=== PATIENT | female | born 1985 | race Two or more races ===

== ENCOUNTER 2019-07-18 20:24 | Inpatient (IN) ==
[~2019-07-18 20:24] MED LIST: EPHEDRINE SULFATE INJ ONE; NS IRRIGATION 1000 ML ONE; VERSED ONE
[2019-07-18 21:07] VITALS: BMI 41.8
[2019-07-18] MEDS ORDERED: LR 1000 ML IV 1,000 ML ONE (21:13)
[2019-07-18] MEDS ORDERED: ANCEF 1 GRAM IV PREMIX* 1 G/50 ML BAG IV ONE (21:13)
[2019-07-18] MEDS ORDERED: D5 1/2 NS 1000 ML 1,000 ML ONE (21:13)
[2019-07-18 21:14] LABS: BASOPHILS % (AUTO) 0.3 % (0.2-1.0); EOSINOPHILS # (AUTO) 0.2 x10^3/uL (0.0-0.2); EOSINOPHILS % (AUTO) 2.3 % (0.9-2.9); HEMATOCRIT 34.5 % (36.0-47.0); LYMPHOCYTES # (AUTO) 1.5 X10^3/uL (1.3-2.9); MEAN CORPUSCULAR HGB CONC 34.8 g/dL (33.0-35.0); MEAN CORPUSCULAR VOLUME 89.2 fL (80.0-100.0); MEAN PLATELET VOLUME 9.9 fL (7.4-11.0); MONOCYTES # (AUTO) 0.8 x10^3/uL (0.3-0.8); MONOCYTES % (AUTO) 7.2 % (0.0-13.0); NEUTROPHILS # (AUTO) 7.9 x10^3/uL (2.2-4.8); NEUTROPHILS % (AUTO) 76.2 % (42.0-75.0); PLATELET COUNT 189 X10^3/uL (150.0-450.0); RED BLOOD COUNT 3.86 X10^6/uL (3.5-5.4); RED CELL DISTRIBUTION WIDTH 14.2 % (11.6-16.5); WHITE BLOOD COUNT 10.4 X10^3/uL (3.6-10.0)
[2019-07-18 21:21] LABS: BLOOD UREA NITROGEN 10 mg/dL (7-18); CALCIUM 8.8 mg/dL (8.5-10.1); CARBON DIOXIDE 21.2 mmol/L (21-32); CHLORIDE 103 mmol/L (98-107); COR NA(FOR HYPERGLY) 137 mmol/L (136-145); CREATININE 0.52 mg/dL (0.55-1.02); SODIUM 136 mmol/L (136-145); eGFR NON BLACK RACES > 60 (>60)
[2019-07-18 21:23] LABS: AMNISURE ROM TEST THERE IS A RUPTURE (NO RUPTURE)
[2019-07-18] MEDS ORDERED: ANCEF VIAL 1 GRAM IVP ONE (21:40)
[2019-07-18] MEDS ORDERED: DILAUDID INJ ONE (21:48)
[2019-07-18 22:35] LABS: BILIRUBIN,URINE NEGATIVE (NEGATIVE); BLOOD/HEMOGLOBIN,URINE 2+ (NEGATIVE); GLUCOSE, URINE NEGATIVE (NEGATIVE); KETONES,URINE NEGATIVE (NEGATIVE); LEUKOCYTE ESTERASE ,URINE NEGATIVE (NEGATIVE); NITRITES,URINE NEGATIVE (NEGATIVE); PROTEIN,URINE NEGATIVE (NEGATIVE); UROBILINOGEN,URINE NORMAL (NORMAL)
[2019-07-18 22:38] LABS: APPEARANCE,URINE CLEAR (CLEAR); BACTERIA,URINE NEGATIVE /HPF (NEGATIVE); COLOR,URINE PALE YELLOW (YELLOW); SQUAMOUS EPITHELIAL CELL,UR RARE /HPF (NEGATIVE)
[2019-07-18] MEDS ORDERED: REGLAN INJ 10 MG VIAL IVP PRN ×2 (22:52→22:53)
[2019-07-18] MEDS ORDERED: ZOFRAN INJ 4 MG VIAL IVP PRN ×2 (22:52→22:53)
[2019-07-18] MEDS ORDERED: DILAUDID INJ IVP PRN (22:52)
[2019-07-18] MEDS ORDERED: PHENERGAN INJ 25 MG IM PRN (22:52)
[2019-07-18] MEDS ORDERED: BENADRYL INJ 50 MG VIAL IVP PRN ×2 (22:52→22:53)
[2019-07-18] MEDS ORDERED: TORADOL 30 MG VIAL IVP PRN (22:53)
[2019-07-18] MEDS ORDERED: PERCOCET TAB 5/325 MG PO PRN (22:53)
[2019-07-18] MEDS ORDERED: NARCAN INJ IVP PRN (22:53)
[2019-07-18] MEDS ORDERED: D5 1/2 NS 1L W PITOCIN 20 UNITS/L 20 UNITS/1,000 ML BAG IV ONE (23:17)
[2019-07-18] MEDS ORDERED: D5 1/2 NS 1000 ML 1,000 ML with PITOCIN 20 UNITS IV SCH ×2 (23:21)
[2019-07-18] MEDS ORDERED: ADACEL or BOOSTRIX TDaP VACCINE IM ONE (23:21)
[2019-07-18] MEDS ORDERED: MYLICON TAB 80 MG CHEW PO PRN (23:21)
[2019-07-19] MEDS: MOTRIN TAB 800 MG PO PRN ×2 (01:35→18:18)
[2019-07-19 05:14] LABS: HEMATOCRIT 33.3 % (36.0-47.0); HEMOGLOBIN 11.1 g/dL (12.0-16.0)
[2019-07-19] MEDS: PRENATAL PLUS PO SCH (09:32)
[2019-07-19] MEDS: ZANTAC PO SCH ×2 (09:33→20:50)
[2019-07-19] MEDS ORDERED: PERCOCET TAB 5/325 MG PO PRN (16:46)
[2019-07-19] MEDS ORDERED: BENADRYL INJ 50 MG VIAL IVP PRN (17:12)
[2019-07-19] MEDS ORDERED: BENADRYL INJ 50 MG VIAL ONE (17:33)
[2019-07-19] MEDS ORDERED: ADACEL or BOOSTRIX TDaP VACCINE IM ONE (17:39)
[2019-07-20] MEDS: MOTRIN TAB 800 MG PO PRN (06:23)
[2019-07-20] MEDS: ZANTAC PO SCH (08:31)
[2019-07-20] MEDS: PRENATAL PLUS PO SCH (08:31)
[2019-07-20 12:27] VITALS: BP 116/70
== END 2019-07-20 14:15 | disposition home or self-care (01) | DRG 788 ==
LOC: ER 20:28 → LD 21:12 → MED/SURG 23:21
PROVIDERS: ADMIT Obstetrics & Gynecology Obstetrics; ATTEND Obstetrics & Gynecology Obstetrics
DX: N85.8 Other specified noninflammatory disorders of uterus; Z37.0 Single live birth; O77.0 Labor and delivery complicated by meconium in amniotic fluid; O34.211 Maternal care for low transverse scar from previous cesarean delivery; Z23 Encounter for immunization; Z3A.40 40 weeks gestation of pregnancy
CPT/HCPCS: 36415; 80048; 81001; 83020; 83021; 84112; 85014; 85018; 85025; 86592; 86701; 86703; 86850; 86900; 86901; 87340; 87389; 90715; 96365; 99284; A4216; A4222; S0197; J0690; J1170; J1200; J2250; J3490; J7120; S5010